=== PATIENT | female | born 1990 | race Caucasian/White ===

== ENCOUNTER 2017-02-07 17:49 | Observation (INO) ==
--- NOTE | 2017-02-07 18:02 | Emergency Department Note ---
Disposition Clinical Impression: Asthma with exacerbation, , Failure of outpatient treatment Disposition: Admitted As Inpatient Referrals: NO,PCP [Primary Care Provider] - Forms: ED Satisfaction Letter General Adult HPI - General Chief complaint: ED Shortness of Breath/Dyspnea Stated complaint: SARKIS/asthma, preg-16 wks Time Seen by Provider: 02/07/17 18:01 Source: patient Limitations: no limitations - History of Present Illness HPI Narrative: 27-year-old female reports emergency department complaining of a cough nasal congestion and wheezing. She has a known history of asthma. She states she ran out of her medication. She is about 16 weeks . The patient is her last delivery was in 2008. The patient denies obstetric concerns she has had no vaginal discharge pelvic cramping or vaginal bleeding. No abdominal pain vomiting or diarrhea. There is no history of leg swelling or pain or coughing up blood. She has never had a DVT or PE. She denies chest pain. The patient has no history of heart problems. The patient denies any major sick contacts. There is no history of any trouble walking talking hearing seeing or speaking. She reports persistent wheezing. She is a nonsmoker. She denies any major medical issues. Onset (ago): day(s) Pain Scale: 0 - Related Data Home Medications Medication Instructions Recorded Confirmed Pnv95/Ferrous Fumarate/FA 1 each PO DAILY 12/29/16 02/07/17 [ Vitamin Tablet] Previous Rx's Medication Instructions Recorded Albuterol Neb [Proventil Neb] 2.5 mg IH Q4-6H PRN #50 vial.neb 12/29/16 Albuterol Sulfate [Albuterol 2 puff IH Q4HR PRN #1 unit 12/29/16 Inhaler] Amoxicillin 875 mg PO BID #20 tablet 02/04/17 DiphenhydraMINE [Benadryl] 25 mg PO Q8HR PRN #20 capsule 02/04/17 GuaiFENesin/Dextromethorphan 5 ml PO Q6H PRN #120 ml 02/04/17 [Robitussin Cough-Chest Dm Liq] Allergies Allergy/AdvReac Type Severity Reaction Status Date / Time No Known Allergies Allergy Verified 02/07/17 17:53 All systems ED: reviewed and negative except as stated. Past Medical History - Past Medical History Medical history: Reports: asthma Surgical history: Reports: non-contributory Psychiatric history: Reports: anxiety, depression BATCH UNLOADER history: Reports: non-contributory - Social History Smoking Status: Never smoker Smokeless Tobacco Status: No Alcohol use: Reports: none Drug use: Reports: none Physical Exam - General Limitations: no limitations General appearance: alert, in no apparent distress - Head Head exam: atraumatic, normocephalic, normal inspection - Eye Eye exam: Present: normal appearance, PERRL, EOMI - ENT ENT exam: normal exam, normal oropharynx, mucous membranes moist - Neck Neck exam: Present: normal inspection, full ROM, trachea midline - Chest Chest inspection: Present: symmetric chest wall rise. Absent: tenderness - Respiratory Respiratory exam: Present: wheezes, prolonged expiratory phase. Absent: respiratory distress - Cardiovascular Cardiovascular exam: Present: regular rate, normal rhythm, normal heart sounds - Abdominal Exam Abdominal exam: Present: soft, Non-Tender, normal bowel sounds. Absent: tenderness, distention, guarding, rebound, rigidity - Extremities Exam Extremities exam: Present: normal inspection, full ROM, normal capillary refill. Absent: tenderness, pedal edema, joint swelling, calf tenderness - Expanded Lower Extremity Exam Lower leg exam: Absent: Homans' sign Neurovascular/Tendon exam: Absent: motor deficit, sensory deficit, tendon deficit, extremity cold to touch, pallor - Back Exam Back exam: Present: normal inspection, full ROM. Absent: tenderness, CVA tenderness (R), CVA tenderness (L), vertebral tenderness - Neurological Exam Neurological exam: Present: alert, oriented X3, CN II-XII intact. Absent: motor sensory deficit - Psychiatric Psychiatric exam: Present: normal affect, normal mood - Skin Skin exam: Present: warm, dry, intact, normal color. Absent: rash, cyanosis, diaphoresis, erythema, pallor, mottled Course Vital Signs Temperature 97.8 F 02/07/17 17:53 Pulse Rate 119 02/07/17 17:53 Respiratory Rate 22 02/07/17 17:53 Blood Pressure 121/76 02/07/17 17:53 O2 Sat by Pulse Oximetry 95 02/07/17 17:53 Temperature 97.8 F 02/07/17 17:53 Pulse Rate 118 02/07/17 19:12 Respiratory Rate 22 02/07/17 19:12 Blood Pressure 121/76 02/07/17 17:53 O2 Sat by Pulse Oximetry 100 02/07/17 19:12 Oxygen Delivery Oxygen Delivery Room Air Medical Decision Making - MDM Narrative Medical decision making narrative: The patient was onitored in the emergency department, she had marked wheezing on initial arrival, 3 duo nebs were given and she was still tachypneic and had a peak flow of 280 on 3 good attempts. An EKG showed sinus tachycardia at 102. The patient states she took 6 or 7 breathing treatments prior to arrival. Her predicted peak flow is about 475. Based on the patient's apparent outpatient treatment failure, persistent tachypnea, and a peak flow of 280 versus predicted peak flow 475 after 9 or 10 breathing treatments today, I thought it would be appropriate to admit the patient. The patient denies any vaginal bleeding or pelvic concerns. A bedside ultrasound shows an active intrauterine consistent with dates. I discussed the case with the hospitalist who has accepted the patient to their care, basic laboratory testing was ordered. We have also consulted BATCH UNLOADER Dr. Gaspar as a regional engagement consultant at the request of the hospitalist. The patient is currently stable pending admission.
[2017-02-07] MEDS: Ipratropium/Albuterol Neb 3 ML IH ONE ×2 (18:31→18:44)
[2017-02-07] MEDS ORDERED: Ipratropium/Albuterol Neb 3 ML ONE (18:41)
[2017-02-07 20:25] LABS: Basophils # 0.1 K/mcL (0.0-0.2); Basophils % 0.5 %; Eosinophils # 0.6 K/mcL (0.0-0.6); Eosinophils % 5.6 %; Hemoglobin 12.3 g/dL (11.5-15.4); Immature Granulocytes % 0.4 % (0-4); Lymphocytes # 2.1 K/mcL (0.6-4.6); Lymphocytes % 18.3 %; Mean Corpuscular HGB Conc 35.1 g/dL (31.6-35.5); Mean Corpuscular Hemoglobin 30.4 pg (28.0-33.3); Mean Corpuscular Volume 86.6 fL (83.0-100.0); Mean Platelet Volume 8.9 fL (9.4-12.4); Monocytes # 0.5 K/mcL (0.0-1.3); Monocytes % 4.6 %; Platelet Count 243 K/mcL (140-400); Red Blood Count 4.04 M/mcL (3.82-4.97); Red Cell Distribution Width 12.2 % (11.5-14.5); Segmented Neutrophils % 70.6 %
[2017-02-07 20:38] LABS: BUN/Creatinine Ratio 8 (6-26); Bilirubin,Total 0.2 mg/dL (0.2-1.2); Calcium 8.9 mg/dL (8.6-10.8); Carbon Dioxide 22 mEq/L (19-29); Chloride 108 mEq/L (98-109); Glucose 91 mg/dL (70-99); Osmolality,Calculated 281 (280-300); Potassium 3.5 mEq/L (3.5-4.5); Sodium 137 mEq/L (136-145); eGFR For African Americans > 60 (> 60); eGFR For Non-African Americans > 60 (> 60)
[2017-02-07 20:39] LABS: Alanine Aminotransferase 21 Units/L (0-55); Albumin 2.9 g/dL (3.5-5.0); Albumin/Globulin Ratio 0.9 (1.1-2.2); Alkaline Phosphatase 56 Units/L (38-126); Aspartate Amino Transferase 21 Units/L (5-34); Bilirubin,Direct 0.1 mg/dL (0.0-0.5); Bilirubin,Indirect 0.1 mg/dL (0.0-1.2); Globulin 3.4 g/dL (2.4-3.5); Total Protein 6.3 g/dL (6.0-8.3)
[2017-02-07 20:40] LABS: Blood Urea Nitrogen 5 mg/dL (7-20)
[2017-02-07] MEDS ORDERED: Naloxone 0.4 MG/ML INJ IVP PRN (21:03)
[2017-02-07] MEDS ORDERED: Acetaminophen 325 MG TABLET PO PRN (21:03)
[2017-02-07 21:05] LABS: Bilirubin,Urine Negative (Negative); Blood,Urine Negative (Negative); Clarity,Urine Cloudy (Clear); Color,Urine Yellow (Yellow); Glucose,Urine (UA) Normal (Normal); Ketones,Urine Negative (Negative); Leukocyte Esterase,Urine Trace (Negative); Nitrite,Urine Negative (Negative); Protein,Urine Negative (Neg-Trace); Specific Gravity,Urine 1.014 (1.010-1.025); Urobilinogen,Urine Normal (Normal)
[2017-02-07 21:08] LABS: Bacteria,Urine None Seen per hpf (None-Few); Hyaline Casts,Urine None Seen per lpf (None-Few); RBC,Urine 0-3 per hpf (0-3); Squamous Epithelial Cell,Urine Many per lpf (None-Few)
[2017-02-07] MEDS ORDERED: Albuterol 2.5 MG/3 ML NEBULIZER IH PRN (21:08)
[2017-02-07] MEDS ORDERED: AMOXICILLIN 400 MG/5 ML PO SCH (21:15)
--- NOTE | 2017-02-07 21:20 | Internal Med History&Physical ---
Date of Encounter: 02/07/17 Time of Encounter: 21:11 Assessment and Plan (1) Asthma with exacerbation Current visit: Yes Status: Acute Patient reports history of asthma since age 9. She reports her asthma worsened with previous pregnancies. She has had increasing shortness of breath and wheezing since Tuesday. She reports she does not have a PCP, and gets her Albuterol inhaler and nebulizer prescriptions from Urgent care. Peak flow in the ED was 280. On exam, she has bilateral inspiratory and expiratory wheezes and is tachypnic with RR of 22. She is satting 95-100% on room air. duoneb treatments Q4hr albuterol nebulizer Q2hr PRN Will add LABA/inhaled glucocorticoid with Budesonide/Formotorol IH BID 60mg Prednisone PO daily Qualifiers: Asthma severity: moderate persistent Qualified Code(s): J45.41 - Moderate persistent asthma with (acute) exacerbation (2) Failure of outpatient treatment Current visit: Yes Status: Acute Patient used 7 nebulizer treatments at home without relief of her asthma symptoms. (3) Current visit: Yes Status: Acute Patient is 16 weeks and following with OB as an outpatient. She denies any abdominal or pelvic pain, vaginal bleeding or spotting. Dr. Fraser reported he performed a bedside ultrasound and confirmed active fetus. OB/gyne consulted. Qualifiers: Weeks of gestation: 16 weeks Qualified Code(s): Z3A.16 - 16 weeks gestation of (4) DVT prophylaxis Current visit: Yes Status: Acute Encourage ambulation anti-embolic stockings Internal Medicine - H&P: HPI Chief complaint: asthma, shortness of breath Admitted From: Emergency Dept Plans for Post Hospital Care: Home History of present illness: Ms. Marley is a 27 year old female with history of asthma, who is 16 weeks , and presented to the emergency department today with increased shortness of breath and wheezing. Patient reports her shortness of breath and wheezing have been increasing since Tuesday. She has used 7 nebulizer treatments at home and still was having increased symptoms. She reports she went to the urgent care on Tuesday and was diagnosed with sinusitis, given amoxicillin, Benadryl, and albuterol inhalers and nebulizers. She is and reports her asthma has always worsened during her previous pregnancies. She reports sinus congestion, denies cough. Denies recent fever, chills, sweats, body aches, denies any sore throat. She denies any abdominal pain or unusual bleeding or spotting. Denies any leg swelling or aching. Evaluation in the emergency department included an EKG which showed normal sinus rhythm, chest x- ray which showed no acute cardiopulmonary process. Dr. Fraser did a bedside ultrasound and confirmed active fetus. White blood cell count was mildly elevated at 11.4. Patient is afebrile and satting 9500% on room air. She received several DuoNeb treatments in the emergency room and was still tachypneic and wheezing. On exam patient is alert and oriented in no acute distress. Heart has regular rate and rhythm. There are bilateral inspiratory and expiratory wheezes with right worse than left. Past Med Surg Social Fam HX - Past Medical History Medical history: asthma Psychiatric history: anxiety, depression - Past Surgical History Surgical History: orthopedic, other (finger surgery) - Social History Smoking Status: Former smoker (2.5 pack year history) Smokeless Tobacco Status: No Alcohol use: none Drug use: none - Family History Mother Living Status: Still Living Hx Family Cardiac Disorders: Yes Hx Family Respiratory Disorders: Yes Father Living Status: Age at : 53 Cause of : Lung Cancer Internal Medicine - H&P: Meds Albuterol Neb [Proventil Neb] 2.5 mg IH Q4-6H PRN #50 vial.neb 12/29/16 [Rx] Albuterol Sulfate [Albuterol Inhaler] 2 puff IH Q4HR PRN #1 unit 12/29/16 [Rx] Pnv95/Ferrous Fumarate/FA [ Vitamin Tablet] 1 each PO DAILY 12/29/16 [ History] Amoxicillin 875 mg PO BID #20 tablet 02/04/17 [Rx] DiphenhydraMINE [Benadryl] 25 mg PO Q8HR PRN #20 capsule 02/04/17 [Rx] GuaiFENesin/Dextromethorphan [Robitussin Cough-Chest Dm Liq] 5 ml PO Q6H PRN # 120 ml 02/04/17 [Rx] Allergies No Known Allergies Allergy (Verified 02/07/17 17:53) All Systems PM: A 10-system review of systems was performed and is negative for pertinent findings except as documented above in the HPI. - Constitutional Constitutional: no chills, no fever(s), no night sweats - EENT Eyes: no change in vision, no discharge, no pain, no photophobia Ears: no ear discharge, no ear pain, no tinnitus Nose, mouth and throat: nasal congestion, no dysphagia, no nasal discharge, no neck pain, no sore throat - Cardiovascular Cardiovascular ROS IM: no chest pain, no diaphoresis, no dyspnea, no lightheadedness, no palpitations, no syncope - Respiratory Respiratory: dyspnea, dyspnea on exertion, wheezing, no cough, no excessive phlegm production - Gastrointestinal Gastrointestinal: no abdominal pain, no diarrhea, no hematemesis, no hematochezia, no melena, no nausea, no vomiting - Genitourinary Genitourinary: no change in urinary stream, no dysuria, no flank pain, no hematuria - Musculoskeletal Musculoskeletal ROS IM: no numbness, no tingling - Integumentary Integumentary IM: no rash, no unusual bruising - Neurological Neurological ROS: no confusion, no convulsions, no focal weakness, no numbness, no tingling, no tremor(s) - Hematologic/Lymphatic Hematologic/Lymphatic: no easy bruising - Constitutional Vitals: Temp Pulse Resp BP Pulse Ox 97.8 F 103 22 121/81 100 02/07/17 17:53 02/07/17 20:15 02/07/17 20:15 02/07/17 20:17 02/07/17 20:15 General appearance: Present: A&O X 3, pleasant, no acute distress - Head Head exam: Present: atraumatic, normocephalic - Eye Eye exam: Present: PERRL, conjuntiva pink, sclera anicteric Pupils: Present: PERRL - Neck Neck exam general surgery: Present: supple, trachea midline. Absent: lymphadenopathy - Respiratory Respiratory exam: Present: wheezes, tachypnea. Absent: accessory muscle use, rales, rhonchi - Cardiovascular Cardiovascular exam: Present: RRR, +S1, +S2. Absent: diastolic murmur, gallop, rubs, systolic murmur - GI/Abdominal GI/Abdominal exam: Present: normal bowel sounds, soft, no peritoneal signs. Absent: distended, tenderness - Extremities Exam Extremities exam: Present: warm, radial pulses palpable and symetrical. Absent : calf tenderness, cyanotic, pedal edema - Neurological Exam Neurological exam: Present: CN II-XII intact, oriented X3, no focal deficits. Absent: facial droop, speech deficit - Skin Skin exam: Present: dry, intact Internal Med - H&P Results - Labs CBC & Chem 7: 02/07/17 20:14 02/07/17 20:14 Labs: All Lab Results (24 Hours) 02/07/17 02/07/17 02/07/17 Range/Units 20:14 20:14 21:00 WBC 11.4 H (4.3-11.1) K/mcL RBC 4.04 (3.82-4.97) M/mcL Hgb 12.3 (11.5-15.4) g/dL Hct 35.0 L (35.3-44.9) % MCV 86.6 (83.0-100.0) fL MCH 30.4 (28.0-33.3) pg MCHC 35.1 (31.6-35.5) g/dL RDW 12.2 (11.5-14.5) % Plt Count 243 (140-400) K/mcL MPV 8.9 L (9.4-12.4) fL Immature Gran % 0.4 (0-4) % Seg Neutrophils % 70.6 % Lymphocytes % 18.3 % Monocytes % 4.6 % Eosinophils % 5.6 % Basophils % 0.5 % Neutrophils # 8.0 (1.6-8.9) K/mcL Lymphocytes # 2.1 (0.6-4.6) K/mcL Monocytes # 0.5 (0.0-1.3) K/mcL Eosinophils # 0.6 (0.0-0.6) K/mcL Basophils # 0.1 (0.0-0.2) K/mcL Sodium 137 (136-145) mEq/L Potassium 3.5 (3.5-4.5) mEq/L Chloride 108 (98-109) mEq/L Carbon Dioxide 22 (19-29) mEq/L BUN 5 L (7-20) mg/dL Creatinine 0.64 (0.57-1.11) mg/dL Est GFR ( Amer) > 60 (> 60) Est GFR (Non-Af Amer) > 60 (> 60) BUN/Creatinine Ratio 8 (6-26) Glucose 91 (70-99) mg/dL Calculated Osmolality 281 (280-300) Calcium 8.9 (8.6-10.8) mg/dL Total Bilirubin 0.2 (0.2-1.2) mg/dL Direct Bilirubin 0.1 (0.0-0.5) mg/dL Indirect Bilirubin 0.1 (0.0-1.2) mg/dL AST 21 (5-34) Units/L ALT 21 (0-55) Units/L Alkaline Phosphatase 56 (38-126) Units/L Serum Total Protein 6.3 (6.0-8.3) g/dL Albumin 2.9 L (3.5-5.0) g/dL Globulin 3.4 (2.4-3.5) g/dL Albumin/Globulin Ratio 0.9 L (1.1-2.2) Urine Color Yellow (Yellow) Urine Clarity Cloudy A (Clear) Urine pH 8.0 (5.0-8.0) pH Units Ur Specific [place] 1.014 (1.010-1.025) Urine Protein Negative (Neg-Trace) mg/dL Urine Glucose (UA) Normal (Normal) mg/dL Urine Ketones Negative (Negative) mg/dL Urine Blood Negative (Negative) Urine Nitrite Negative (Negative) Urine Bilirubin Negative (Negative) Urine Urobilinogen Normal (Normal) mg/dL Ur Leukocyte Esterase Trace H (Negative) Urine Microscopic RBC 0-3 (0-3) per hpf Urine Microscopic WBC 3-5 H (0-3) per hpf Ur Squamous Epith Cells Many H (None-Few) per lpf Urine Bacteria None Seen (None-Few) per hpf Hyaline Casts None Seen (None-Few) per lpf Ur Culture Indicated? YES A (NO) - Diagnostic Studies Chest x-ray Additional comments: Chest X-Ray 02/07/17 20:01 IMPRESSION: No acute process. D/ / Jean Byrne MD / Jean Byrne MD Interpreting Provider: Jean Byrne MD
[2017-02-07] MEDS ORDERED: Amoxicillin Susp 250 MG/5 ML UDC PO SCH (22:00)
[2017-02-07] MEDS ORDERED: Ipratropium/Albuterol Neb 3 ML IH SCH (23:00)
[2017-02-07] MEDS ORDERED: predniSONE 20 MG TABLET PO ONE (23:13)
[2017-02-07] MEDS: Budesonide/Formoterol 160/4.5 MDI IH SCH (23:32)
[2017-02-07] MEDS: Ipratropium/Albuterol Neb 3 ML IH SCH (23:50)
--- NOTE | 2017-02-08 00:36 | Event Note ---
Date of Encounter: 02/08/17 Time of Encounter: 00:32 Patient seen and examined withpetitioner. Agree with assessment plan. Patient presents with acute asthma exacerbation. Failed outpatient therapy. she had been receiving frequent nebulizer treatments at home approximately 70 g of treatments daily. Today so far she had received 10 nebulizer treatments. Patient on my interview shows no respiratory distress, no accessory muscle used , moving a fair amount of air. Patient will be started on nebulizer treatments Q4 hours. Steroids will be started in the form of prednisone 60 mg PO daily 1st does now. Sales Team Manager will evaluate the patient as she is 16 weeks . No evidence of pneumonia on my exam.
[2017-02-08] MEDS: Ipratropium/Albuterol Neb 3 ML IH SCH ×4 (04:12→16:21)
[2017-02-08] MEDS: Budesonide/Formoterol 160/4.5 MDI IH SCH (07:58)
[2017-02-08] MEDS ORDERED: predniSONE 20 MG TABLET PO SCH (09:00)
[2017-02-08] MEDS ORDERED: Prenatal Vit/FA 1 EACH TABLET PO SCH (09:00)
--- NOTE | 2017-02-08 14:47 | OB/GYN Consult Note ---
Date of Encounter: 02/08/17 Time of Encounter: 14:43 Assessment and Plan (1) Current Visit: Yes Status: Acute , 16wks gestation. Recommend patient keeps her existing appointment this with her OB, Dr. Tobar, of [facility]. Qualifiers: Weeks of gestation: 16 weeks Qualified Code(s): Z3A.16 - 16 weeks gestation of (2) Asthma with exacerbation Current Visit: Yes Status: Acute Discussed with the patient the importance of follow-up with the same provider for her asthma. Spoke with the MOTOR VEHICLE EXAMINER following the patient with recommendation to provide contact phone numbers for the patient to call and establish a primary care physician for roasterman management of her asthma. Agree with discharge medications. Qualifiers: Asthma severity: moderate persistent Qualified Code(s): J45.41 - Moderate persistent asthma with (acute) exacerbation History of Present Illness Consult date: 02/08/17 Requesting physician: Han Fraser Reason for consult: medical complication Chief complaint: SARKIS History of present illness: Mrs. Marley, a 27 yo female, presented from home to the emergency department with chief complaint difficulty breathing. Was admitted with diagnosis of acute exacerbation of asthma. Now resolved. STORE STOCKER was consulted regarding the patient's status. Patient is [id number], currently 16 weeks [address] Dr[address] Tobar at [facility]. Previous pregnancies complicated by premature delivery (7mo & 7.5mo). Patient's appointment is next with Dr. Tobar during which she will receive, "shots to prevent premature labor." Currently, patient denies SARKIS, fever, chills, congestion, contractions, vaginal discharge, burning/frequency with urination. Her only complaint is lower back pain, which has been ongoing. She has already spoken with Dr. Tobar who informed her it was a normal part of . 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 Denies any additional concerns or questions at this time. Past Med Surg Social Fam HX - Past Medical History Medical history: asthma Psychiatric history: anxiety, depression - Past Surgical History Surgical History: orthopedic, other (finger surgery) - Social History Smoking Status: Former smoker (2.5 pack year history) Smokeless Tobacco Status: No Alcohol use: none Drug use: none - Family History Mother Living Status: Still Living Hx Family Cardiac Disorders: Yes Hx Family Respiratory Disorders: Yes Hx Family Cancer: No Hx Family GI Disorders: No Hx Family Genitourinary Disorders: No Hx Family Endocrine Disorder: No Hx Family Musculoskeletal Disorders: No Hx Family Neuromuscular Disorders: No Hx Family Neurologic Disorders: No Hx Family HEENT Disorders: No Hx Family Autoimmune Disorders: No Hx Family Reproductive Disorders: No Hx Family Psychosocial Disorders: No Hx Family Medical Disorders: No Father Living Status: Age at : 53 Cause of : Lung Cancer Hx Family Cardiac Disorders: No Hx Family Respiratory Disorders: Yes Hx Family Cancer: Yes Hx Family GI Disorders: No Hx Family Genitourinary Disorders: No Hx Family Endocrine Disorder: No Hx Family Musculoskeletal Disorders: No Hx Family Neuromuscular Disorders: No Hx Family Neurologic Disorders: No Hx Family HEENT Disorders: No Hx Family Autoimmune Disorders: No Hx Family Reproductive Disorders: No Hx Family Psychosocial Disorders: No Hx Family Medical Disorders: No Medications and Allergies Albuterol Neb [Proventil Neb] 2.5 mg IH Q4-6H PRN #50 vial.neb 12/29/16 [Rx] Albuterol Sulfate [Albuterol Inhaler] 2 puff IH Q4HR PRN #1 unit 12/29/16 [Rx] Pnv95/Ferrous Fumarate/FA [ Vitamin Tablet] 1 each PO DAILY 12/29/16 [ History] Amoxicillin 875 mg PO BID #20 tablet 02/04/17 [Rx] DiphenhydraMINE [Benadryl] 25 mg PO Q8HR PRN #20 capsule 02/04/17 [Rx] GuaiFENesin/Dextromethorphan [Robitussin Cough-Chest Dm Liq] 5 ml PO Q6H PRN # 120 ml 02/04/17 [Rx] Allergies No Known Allergies Allergy (Verified 02/07/17 17:53) Review of Systems Constitutional: as per HPI Exam - Vital Signs Vital signs: Initial Vital Signs Temp Pulse Resp BP Pulse Ox 97.8 F 119 22 121/76 95 02/07/17 17:53 02/07/17 17:53 02/07/17 17:53 02/07/17 17:53 02/07/17 17:53 - Constitutional Constitutional: well developed, well nourished, no acute distress, average body habitus - HEENT HEENT: PERRL, Normocephaly, Mucus Membranes Moist - Neck Neck exam: normal inspection - Abdomen Abdomen: Present: bowel sounds normal, gravid (fundal height 3-4 finger breadths below umbilicus.) - Comments Comments: Respiratory: Symmetric chest rise. Lungs clear to auscultation bilaterally Results Result Diagrams: 02/07/17 20:14 02/07/17 20:14 Abnormal lab results WBC 11.4 K/mcL (4.3-11.1) H 02/07/17 20:14 Hct 35.0 % (35.3-44.9) L 02/07/17 20:14 MPV 8.9 fL (9.4-12.4) L 02/07/17 20:14 BUN 5 mg/dL (7-20) L 02/07/17 20:14 Albumin 2.9 g/dL (3.5-5.0) L 02/07/17 20:14 Albumin/Globulin Ratio 0.9 (1.1-2.2) L 02/07/17 20:14 Urine Clarity Cloudy (Clear) A 02/07/17 21:00 Ur Leukocyte Esterase Trace (Negative) H 02/07/17 21:00 Urine Microscopic WBC 3-5 per hpf (0-3) H 02/07/17 21:00 Ur Squamous Epith Cells Many per lpf (None-Few) H 02/07/17 21:00 Ur Culture Indicated? YES (NO) A 02/07/17 21:00 All other labs normal. Chest x-ray: report reviewed Consult Discharge Plan - Plan Referrals: NO,PCP [Primary Care Provider] -
[2017-02-08 15:30] VITALS: BP 96/52
--- NOTE | 2017-02-08 15:49 | Electrocardiograph Report ---
[address] [place] [address] Test Date: 2017-02-07 Pat Name: Dilia Marley Department: 105 Room: 3B Gender: F Traffic Engineering Director: : 1990 Requested By: Delilah Pleitez Order Number: [id number] Reading MD: Mary Dockery Measurements Intervals [place] Rate: 102 P: 58 WA: 147 QRS: 62 QRSD: 91 T: 46 QT: 320 QTc: 378 Interpretive Statements SINUS TACHYCARDIA ABNORMAL RHYTHM ECG Electronically Signed On 02-08-2017 15:48:31 EDT by Mary Dockery
--- NOTE | 2017-02-08 16:55 | Discharge Summary ---
Date of Encounter: 02/08/17 Time of Encounter: 16:30 - Discharge Diagnosis (1) Asthma with exacerbation Priority: Primary Status: Chronic Comments: Pt is 16 week gestation female who presented to the ED wtih diff breathing and was out of her inhaler and nebulizer medication. Pt reports 2 day history of increased use of inhaler and wheezing, sob. Pt speaks easily and is tachycardic due to last breathing treatment approx 10min prior to exam. She denies wheezing or cough and is ready to go home. She says that she feels fine. leukocytosis 11.4 on arrival, most likely due to stress and . Pt has remained afebrile. Qualifiers: Asthma severity: moderate persistent Qualified Code(s): J45.41 - Moderate persistent asthma with (acute) exacerbation (2) Failure of outpatient treatment Priority: Secondary Status: Acute Comments: Will give rx for nebulizer and rescue inhaler. Pt will also need to get a PCP and will be given info on available providers. Discussed the importance of primary care for continuity of care and for follow up treatment. (3) Priority: Primary Status: Acute Comments: Pt has appt with [facility] in 2 days. Will keep appointment. Qualifiers: Weeks of gestation: 16 weeks Qualified Code(s): Z3A.16 - 16 weeks gestation of - Discharge Medications Prescriptions: Albuterol Sulfate [Albuterol Inhaler] 2 puff IH Q4HR PRN #1 unit PRN Reason: Wheezing Albuterol Neb [Proventil Neb] 2.5 mg IH Q4-6H PRN #50 vial.neb PRN Reason: Wheezing PredniSONE 10 mg PO DAILY #31 tablet Home Medications: Pnv95/Ferrous Fumarate/FA [ Vitamin Tablet] 1 each PO DAILY 12/29/16 [ History] DiphenhydraMINE [Benadryl] 25 mg PO Q8HR PRN #20 capsule 02/04/17 [Rx] GuaiFENesin/Dextromethorphan [Robitussin Cough-Chest Dm Liq] 5 ml PO Q6H PRN # 120 ml 02/04/17 [Rx] Albuterol Neb [Proventil Neb] 2.5 mg IH Q4-6H PRN #50 vial.neb 02/08/17 [Rx] Albuterol Sulfate [Albuterol Inhaler] 2 puff IH Q4HR PRN #1 unit 02/08/17 [Rx] PredniSONE 10 mg PO DAILY #31 tablet 02/08/17 [Rx] Allergies/Adverse Reactions: Allergies No Known Allergies Allergy (Verified 02/07/17 17:53) Procedures/tests Complete & Pending: Procedures Performed prior 72 hours Category Date Time Status ECG 12 lead ECG [ECG] Routine Y 02/07/17 18:05 Completed Date of admission: 02/07/17 21:01 Primary care physician: PCP NO Consults: OB/DR. Sepulveda Discharging clinician: Lilliam Koo Anticipated date of discharge: 02/08/17 - Patient Status Disposition: Home, Self-Care Condition: Good Functional capacity at discharge: independent ambulation Overall status at discharge: patient is progressing back to baseline - Discharge Instructions Follow Up With: NO,PCP [Primary Care Provider] - Additional Instructions: Please keep your appointment with Dr. Tobar on 02/10 Please call [phone] to find a primary care physician to help manage your asthma more effectively Drink plenty of water and get plenty of rest Please return if you have any further problems or concerns. - Diet and Activity Activity: resume usual activities as tolerated Hospital course: Ms. Marley is a 27 year old female who began feeling sob and wheezing for a day. pt states that she tried to do 7 breathing treatments prior to coming to the ED. Pt states that she does not have a PCP and has been going to urgent care for treatment.and failed outpt antibiotic therapy and also is out of her nebulizer medication and rescue inhaler. Pt wBC 11.4 and she has remained afebrile. Chest xray on admission was negative for any acute process. Pt denies productive cough at this time. Lungs are clear, no wheezing or ronchi heard in lung gardner. Time spent discussing smoking cessation with patient: 3 to 10 minutes - Time Spent with Patient Total time spent providing and/or coordinating discharge services: Less than 30 minutes - Constitutional Vitals: Temp Pulse Resp BP Pulse Ox 97.8 F 115 16 96/52 97 02/08/17 15:29 02/08/17 15:29 02/08/17 15:29 02/08/17 15:29 02/08/17 15:29 General appearance: Present: cooperative, A&O X 3, pleasant, no acute distress, answers questions appropriately - Head Head exam: Present: normal inspection - Eye Eye exam: Present: normal appearance, conjuntiva pink - ENT ENT exam: Present: mucous membranes moist, normal exam - Neck Neck exam general surgery: Absent: lymphadenopathy, tenderness, thyromegaly - Respiratory Respiratory exam: Present: CTAB. Absent: accessory muscle use, chest wall tenderness, decreased breath sounds, rales, respiratory distress, rhonchi, stridor, wheezes, tachypnea - Cardiovascular Cardiovascular exam: Present: RRR, +S1, +S2, tachycardia Additional comments: Pt just had nebulizer treatment 10 min prior to exam, will reevaluate. - GI/Abdominal GI/Abdominal exam: Present: soft. Absent: tenderness Additional comments: Pt is 16 weeks . - Extremities Exam Extremities exam: Present: normal capillary refill, normal inspection, warm, radial pulses palpable and symetrical. Absent: calf tenderness, joint swelling Additional comments: +2 elise pedal pulses.
== END 2017-02-08 18:30 | disposition home or self-care (01) ==
LOC: EMEROO 17:49 → 3BNU 17:49
PROVIDERS: ADMIT Hospitalist; ATTEND Internal Medicine Endocrinology, Diabetes & Metabolism

== ENCOUNTER → 2017-05-15 15:00 | Observation (INO) ==
[2017-05-15 13:54] LABS: Bilirubin,Urine Negative (Negative); Blood,Urine Negative (Negative); Clarity,Urine Cloudy (Clear); Color,Urine Yellow (Yellow); Glucose,Urine (UA) Normal (Normal); Ketones,Urine Negative (Negative); Leukocyte Esterase,Urine Negative (Negative); Nitrite,Urine Negative (Negative); PH,Urine 7.5 pH Units (5.0-8.0); Protein,Urine Negative (Neg-Trace); Specific Gravity,Urine 1.011 (1.010-1.025); Urobilinogen,Urine Normal (Normal)
[2017-05-15 13:57] LABS: Bacteria,Urine None Seen per hpf (None-Few); Hyaline Casts,Urine None Seen per lpf (None-Few); RBC,Urine 0-3 per hpf (0-3); Squamous Epithelial Cell,Urine Many per lpf (None-Few); WBC,Urine 0-3 per hpf (0-3)
--- NOTE | 2017-05-15 23:22 | OB/GYN Progress Note ---
Date of Encounter: 05/15/17 Time of Encounter: 14:30 - Assessment and Plan (1) 29 weeks gestation of Status: Acute (2) contractions Status: Acute Patient was seen and evaluated by RN and found to not be in labor. She was discharged to followup with her OB provider tomorrow. Objective - Vital Signs Vital Signs: Intake and Output 05/15/17 05/15/17 05/15/17 07:59 15:59 23:59 Other: Weight 78.9 kg Patient Weight 05/15/17 23:59 Weight 78.9 kg - Labs Labs: Abnormal lab results Urine Clarity Cloudy (Clear) A 05/15/17 13:37 Ur Squamous Epith Cells Many per lpf (None-Few) H 05/15/17 13:37
== END | disposition home or self-care (01) ==
LOC: 1NENULAB
PROVIDERS: ADMIT Obstetrics & Gynecology; ATTEND Obstetrics & Gynecology

== ENCOUNTER → 2017-06-16 01:05 | Observation (INO) ==
--- NOTE | 2017-06-16 01:16 | Discharge Summary ---
Date of Encounter: 06/16/17 Time of Encounter: 01:16 - Discharge Diagnosis (1) 34 weeks gestation of Priority: Primary Status: Acute Comments: admit for observation (2) contractions Priority: Secondary Status: Acute Comments: False labor no cervical change (3) NST (non-stress test) reactive on surveillance Priority: Secondary Status: Acute Comments: Baseline 140 bpm moderate variability +15x15 accels no decels noted. - Discharge Medications Home Medications: Pnv95/Ferrous Fumarate/FA [ Vitamin Tablet] 1 each PO DAILY 12/29/16 [ History] Albuterol Sulfate [Albuterol Inhaler] 1 puff IH QID PRN #1 puff 03/21/17 [Rx] Progesterone,Micronized [Progesterone] 100 mg PO 06/16/17 [History] Allergies/Adverse Reactions: Allergies No Known Allergies Allergy (Verified 02/07/17 17:53) Date of admission: 06/15/17 23:42 Discharging clinician: Mary Campos Anticipated date of discharge: 06/16/17 - Patient Status Disposition: Home, Self-Care Condition: Good - Discharge Instructions Additional Instructions: LABOR AND DELIVERY DISCHARGE INSTRUCTIONS Signs and Symptoms to be Reported to your Doctor Immediately: * Sudden gush, continuous or intermittent lead of fluid from vagina (note the time of gush and color of fluid) * Onset of bright red vaginal bleeding with or without pain (if you had a vaginal exam during this visit you may notice some dark red spotting. This is normal.) * Lower abdominal cramping or backache that is premenstrual-like feeling. * More than 6 contractions in one hour. * Burning during urination, having to urinate more frequently or pain in your mid-back. * A change in the baby's activity. This could be an increase or decrease in activity. * Severe headache which does not go away with tylenol. * Sudden swelling in the face, hands, arms and/or legs. * Upper abdominal pain - sometimes associated with heartburn or nausea and is not relieved by Maalox, Mylanta or Tums. * Dizziness or blurred vision or visual disturbances (seeing stars/lights). * Kick Counts One hour after a meal, lay down on one side in a quiet place. Count the number of ortega the baby moves during an hour. If less than 6 movements, notify your physician. Diet: *Force fluids - 8-10 tall glasses of fluid per day. May include popsicles and jello. *Limit caffeine - this includes chocolate, coffee, tea, any soft drink containing such as all alfredo, Luis Fernando Yellow and Mountain Dew - Diet and Activity Activity: increase activity as tolerated Diet: regular diet Hospital Course [facility]CT [facility]AC[employer] Hospital course: Patient is 27 y/o at 34 weeks gestation presents with c/o contractions for past few day. Patient denies LOF or VB. Patient reports +FM. Time Attestation: Total time spent providing and/or coordinating discharge services: Time Spent: Less than 30 minutes Exam - Other Additional findings: Patient seen and assessed by RN. FHR bpm moderate variability + x accels no decels noted. Contrations irregular. No Cervical change after observation. - VTE Reasons for not Prescribing Prophylaxis: Treatment not Indicated - Low risk for VTE
--- NOTE | 2017-06-16 01:17 | OB/GYN Progress Note ---
Date of Encounter: 06/16/17 Time of Encounter: 12:58 Subjective - Subjective Principal diagnosis: Contractions Antepartum ROS: new complaints, movement normal, contractions, no loss of fluid, no vaginal bleeding Objective - Vital Signs Vital Signs: Intake and Output 06/15/17 06/15/17 06/16/17 15:59 23:59 07:59 Other: Weight 82.6 kg
== END | disposition home or self-care (01) ==
LOC: 1NENULAB
PROVIDERS: ADMIT Advanced Practice Midwife; ATTEND Advanced Practice Midwife